=== PATIENT | male | born 1985 | race Two or more races ===

== ENCOUNTER 2024-06-18 15:01 | Emergency (ER) | payer MEDICAID ==
[~2024-06-18] VITALS: Ht 175.3 cm; Wt 70.0 kg
[2024-06-18 15:04] VITALS: BP 140/96; PULSE 99; RESP 18; TEMP 97.8; O2SAT 98
[2024-06-18 16:02] LABS: EOSINOPHILS % 2.4 % (0.0-5.0); HEMATOCRIT. 43.8 % (42.0-52.0); HEMOGLOBIN. 15.1 g/dL (14.0-18.0); LYMPHOCYTES % 32.3 % (20.0-50.0); MEAN CORPUSCULAR HEMOGLOBIN 31.6 pg (28.0-32.0); MEAN CORPUSCULAR HGB CONC 34.4 g/dL (31.0-37.0); MEAN CORPUSCULAR VOLUME 91.7 fL (80.0-94.0); MONOCYTES % 10.5 % (2.0-8.0); NEUTROPHILS % 53.8 % (40.0-76.0); PLATELET 316 x1000/uL (130-400); RED BLOOD CELL COUNT 4.78 mill/uL (4.7-6.1); RED CELL DISTRIBUTION WIDTH 12.6 % (11.6-14.6); WHITE BLOOD COUNT 6.1 x1000/uL (4.5-11.0)
[2024-06-18 16:10] LABS: CARBON DIOXIDE 26 mEq/L (21-32); CHLORIDE 103 mEq/L (98-107); POTASSIUM 4.6 mEq/L (3.5-5.1); SODIUM 137 mEq/L (136-145)
[2024-06-18 16:11] LABS: CALCIUM 9.9 mg/dL (8.7-10.4)
[2024-06-18 16:16] LABS: GLUCOSE 101 mg/dL (70-105); UREA NITROGEN BLOOD 14 mg/dL (9-23)
[2024-06-18] MEDS ORDERED: DICYCLOMINE 10 MG/5 ML ORAL SYR PO STA (17:13)
[2024-06-18] MEDS ORDERED: ONDA4TAB50 MT (18:25)
[2024-06-18] MEDS ORDERED: FAMO-135 MT (18:25)
[2024-06-18] MEDS: METOCLOPRAMIDE HCL 10MG TABLET PO ONE (18:26)
[2024-06-18] MEDS: FAMOTIDINE 20MG TABLET PO ONE (18:26)
[2024-06-18] MEDS: DICYCLOMINE HCL 10MG CAPSULE PO NR (18:26)
== END 2024-06-18 18:30 | disposition home or self-care (01) ==
LOC: ER 15:01
DX: R11.2 Nausea with vomiting, unspecified (principal); F19.90 Other psychoactive substance use, unspecified, uncomplicated; E78.00 Pure hypercholesterolemia, unspecified
CPT/HCPCS: 99284; 80048; 85025; 36415; J8597